=== PATIENT | female | born 1995 | race Caucasian/White ===

== ENCOUNTER 2017-03-12 23:36 | Emergency (ER) | payer OTHER ==
[2017-03-12] MEDS ORDERED: NO HOME MEDICATION XX (23:51)
[2017-03-13] MEDS ORDERED: AUGMENTIN 875-1 EAC2 PO (00:12)
== END 2017-03-13 00:47 ==
LOC: EDMED 23:36
DX: S60.410A Abrasion of right index finger, initial encounter (principal); J02.9 Acute pharyngitis, unspecified; F41.9 Anxiety disorder, unspecified; D64.9 Anemia, unspecified; Z79.899 Other long term (current) drug therapy; W55.03XA Scratched by cat, initial encounter
CPT/HCPCS: J1885